=== PATIENT | male | born 1995 | race Caucasian/White ===

== ENCOUNTER 2020-10-02 15:14 | Emergency (ER) | payer SELFPAY ==
[~2020-10-02] VITALS: Ht 157.5 cm; Wt 77.2 kg
[2020-10-02 15:45] VITALS: BP 138/84
--- NOTE | 2020-10-02 16:05 | ED.ADGEN ---
Past Medical History Past Medical History: No Pertinent History Past Surgical History: Other Additional Past Surgical Histo: hernia removal, bilat testicle removed Smoking Status: Current Every Day Smoker Alcohol Use: Heavy Drug Use: None General Adult EDM: Chief Complaint: SORE THROAT HPI: HPI: Patient is a 25 year old male coming in for upper respiratory complaints. Patient states he has had congestion, cough, mild sore throat for the past few days denies any GI complaints or fevers. Is not had his Covid vaccines. Is not taking any medications prior to arrival Review of Systems: Review of Systems: All other systems within normal limits except for as noted in the HPI Current Medications: Current Medications Medications (Trade) Dose Ordered Sig/Scottie Start Time Stop Time Status Last Admin Dose Admin Guaifenesin (MUCINEX ER with DM) 1 tab 1X ONCE 10/02/20 16:30 10/02/20 16:31 DC 10/02/20 16:39 1 TAB Allergies: Allergies: Allergies Coded Allergies Type Severity Reaction Last Updated Verified No Known Drug Allergies 05/25/15 No Physical Exam: PE: Constitutional: Well developed, well nourished, no acute distress, non-toxic appearance. [] HENT: Normocephalic, atraumatic, bilateral external ears normal, nose normal. [] Eyes: PERRLA, conjunctiva normal, no discharge. [] Neck: No rigidity, supple, no stridor. [] Cardiovascular: Regular rate and rhythm, brisk cap refill [] Lungs & Thorax: Non labored symmetric respirations, no tachypnea or respiratory distress [] Abdomen: Soft, nondistended. Skin: Warm, dry, no erythema, no rash. [] Back: Unremarkable Extremities: No deformities, range of motion grossly intact, no lower extremity edema [] Neurologic: Alert and oriented X 3, no focal deficits noted. [] Psychologic: Affect normal, judgement normal, mood normal. [] Current Patient Data: Vital Signs: Vital Signs Date Time Temp Pulse Resp B/P (MAP) Pulse Ox O2 Delivery O2 Flow Rate FiO2 10/02/20 15:45 98.0 100 18 138/84 (102) 99 Room Air 98.0 EKG: EKG: [] Heart Score: C/O Chest Pain: No Risk Factors: Risk Factors: DM, Current or recent (<one month) smoker, HTN, HLP, family history of CAD, obesity. Risk Scores: Score 0 - 3: 2.5% MACE over next 6 weeks - Discharge Home Score 4 - 6: 20.3% MACE over next 6 weeks - Admit for Clinical Observation Score 7 - 10: 72.7% MACE over next 6 weeks - Early Invasive Strategies Radiology/Procedures: Radiology/Procedures: [facility] [address] [place] [address] IMAGING REPORT Signed PATIENT: GENESIS PUENTES ACCOUNT: [id number] : 1995 LOCATION: ER AGE: 25 SEX: M EXAM STATUS: PRE ER ORD. PHYSICIAN: REYNALDO MCLEOD MD REASON: cough, URI PROCEDURE: CHEST PA & LATERAL EXAMINATION: XR CHEST 2V CLINICAL HISTORY: Cough, URI EXAM DATE/TIME: 10/02/2020 4:28 PM COMPARISON: None FINDINGS: Lines, Tubes, and Devices: None. Cardiomediastinal Silhouette: Within normal limits. Lungs and Pleura: No evidence of focal airspace consolidation, pleural effusion, or pneumothorax. Bones and Soft Tissues: No acute osseous abnormality. IMPRESSION: No evidence of acute cardiopulmonary abnormality. Electronically signed by: Mario Alberto Alexandre DO (10/02/2020 4:30 PM) [id number] DICTATED and SIGNED BY: MARIO ALBERTO ALEXANDRE DO DATE: 10/02/20 [id number] [] Course & Med Decision Making: Course & Med Decision Making Pertinent Labs and Imaging studies reviewed. (See chart for details) [] Dragon Disclaimer: Dragon Disclaimer: This electronic medical record was generated, in whole or in part, using a voice recognition dictation system. Departure Departure Impression: Primary Impression: Upper respiratory infection Disposition: HOME / SELF CARE / HOMELESS Condition: STABLE Referrals: NO PCP (PCP) Patient Instructions: Upper Respiratory Infection, Adult Additional Instructions: No signs of pneumonia, you do not need antibiotics by her chest x-ray. Treat symptoms with [id number] medications consistent with your symptoms. Get your Covid vaccines. REYNALDO MCLEOD MD Oct 02, 2020 16:05
[2020-10-02] MEDS ORDERED: guaiFENesin DM 600/30MG 1 TAB TAB.ER.12H PO ONE (16:30)
--- NOTE | 2020-10-02 16:33 | RAD ---
EXAMINATION: XR CHEST 2V CLINICAL HISTORY: Cough, URI EXAM DATE/TIME: 10/02/2020 4:28 PM COMPARISON: None FINDINGS: Lines, Tubes, and Devices: None. Cardiomediastinal Silhouette: Within normal limits. Lungs and Pleura: No evidence of focal airspace consolidation, pleural effusion, or pneumothorax. Bones and Soft Tissues: No acute osseous abnormality. IMPRESSION: No evidence of acute cardiopulmonary abnormality. Electronically signed by: Mari oAlberto Mead DO (10/02/2020 4:30 PM) [id number]
== END 2020-10-02 16:59 | disposition home or self-care (01) ==
LOC: ER 15:14
DX: J06.9 Acute upper respiratory infection, unspecified (principal); F17.200 Nicotine dependence, unspecified, uncomplicated
CPT/HCPCS: 71046; 99283

== ENCOUNTER 2021-06-30 13:36 | Emergency (ER) | payer SELFPAY ==
[~2021-06-30] VITALS: Ht 177.8 cm; Wt 75.0 kg
[2021-06-30 13:46] VITALS: BP 167/94
[2021-06-30] MEDS ORDERED: DICYCLOMINE 20 MG/2 ML VIAL. IM ONE (14:00)
--- NOTE | 2021-06-30 14:13 | PHYS DOC ---
Past Medical History Past Medical History: No Pertinent History Past Surgical History: Other Additional Past Surgical Histo: hernia removal, bilat testicle removed Smoking Status: Current Every Day Smoker Alcohol Use: Heavy Drug Use: None General Adult EDM: Chief Complaint: NAUSEA/VOMITING/DIARRHEA HPI: HPI: Patient is a 26 year old male who presents with last 2 days patient has had nausea, vomiting diarrhea. He states that last night he was able to have some broth. He states that today he was able to keep down a sandwich and some flui ds. He states the meaning that is bothering him is still the diarrhea. He states on Monday he drank quite a bit of alcohol and had at least 6 very large beers if not more. He states he usually has at least 3 beers a night daily. He states every now and then he gets bouts of some vomiting and diarrhea maybe once or twice a month. He states it only last about a day usually. He states that this lasted longer this time around. He states he has not gone to work and he is here to get a work note so he can go back to work. He has not tried to take any medications for his symptoms. He states that the nausea and vomiting is now gone and its only the diarrhea he has now. Patient has a history of alcoholism, smoking. Patient denies fever, abdominal pain, dizziness, headache, shortness of breath, chest pain, back pain, numbness or tingling, urinary symptoms, weakness, vision change, skin color change. Denies any pain at this time. Review of Systems: Review of Systems: Constitutional: Denies fever or chills. [] Eyes: Denies change in visual acuity. [] HENT: Denies nasal congestion or sore throat. [] Respiratory: Denies cough or shortness of breath. [] Cardiovascular: Denies chest pain or edema. [] GI: Denies abdominal pain,+nausea, +vomiting, denies bloody stools or +diarrhea. [] : Denies dysuria. [] Musculoskeletal: Denies back pain or joint pain. [] Integument: Denies rash. [] Neurologic: Denies headache, focal weakness or sensory changes. [] Endocrine: Denies polyuria or polydipsia. [] Lymphatic: Denies swollen glands. [] Psychiatric: Denies depression or anxiety. [] Heart Score: C/O Chest Pain: No Current Medications: Current Medications Medications (Trade) Dose Ordered Sig/Scottie Start Time Stop Time Status Last Admin Dose Admin Dicyclomine HCl (Bentyl) 10 mg 1X ONCE 06/30/21 14:00 06/30/21 14:03 DC Allergies: Allergies: Allergies Coded Allergies Type Severity Reaction Last Updated Verified No Known Drug Allergies 05/25/15 No Physical Exam: PE: Constitutional: Well developed, well nourished, no acute distress, non-toxic appearance. [] HENT: Normocephalic, atraumatic, bilateral external ears normal, oropharynx moist, no oral exudates, nose normal. [] Eyes: PERRLA, EOMI, conjunctiva normal, no discharge. [] Neck: Normal range of motion, no tenderness, supple, no stridor. [] Cardiovascular:Heart rate regular rhythm, no murmur [] Lungs & Thorax: Bilateral breath sounds clear to auscultation [] Abdomen: Bowel sounds normal, soft, no tenderness, no masses, no pulsatile masses. [] Skin: Warm, dry, no erythema, no rash. [] Back: No tenderness, no CVA tenderness. [] Extremities: No tenderness, no cyanosis, no clubbing, ROM intact, no edema. [] Neurologic: Alert and oriented X 3, normal motor function, normal sensory function, no focal deficits noted. [] Psychologic: Affect normal, judgement normal, mood normal. [] Normal physical exam Current Patient Data: Vital Signs: Vital Signs Date Time Temp Pulse Resp B/P (MAP) Pulse Ox O2 Delivery O2 Flow Rate FiO2 06/30/21 13:46 98.2 83 18 167/94 (118) 99 Room Air 98.2 EKG: EKG: [] Radiology/Procedures: Radiology/Procedures: [] Course & Med Decision Making: Course & Med Decision Making Pertinent Labs and Imaging studies reviewed. (See chart for details) See HPI. Alert and oriented x4. Ambulatory steady gait. Speaks in full clear sentences. Mucous membranes are moist. Vital signs within normal limits. Abdomen is soft and nontender. No jaundice. Skin pink warm and dry. Lungs are clear to auscultation all lobes. Urinalysis does not show dehydration. His vital signs are within normal limits. Influenza and rapid Covid are negative. Patient is educated that he needs to not drink as much alcohol. Patient states his understanding. [] [place] Disclaimer: Dragon Disclaimer: This electronic medical record was generated, in whole or in part, using a voice recognition dictation system. Departure Departure Impression: Primary Impression: Diarrhea Qualified Codes: R19.7 - Diarrhea, unspecified Additional Impression: Alcohol abuse Disposition: HOME / SELF CARE / HOMELESS Condition: STABLE Referrals: NO PCP (PCP) Patient Instructions: Alcohol Problems, Alcohol and Drug Addiction, Finding Treatment Additional Instructions: Follow-up with your primary care provider. Please stop lower the amount of alcohol you are drinking if at all possible. Drink plenty of fluids to stay hydrated. You can take Imodium [id number] to help with diarrhea. MELO ESTEVES BIOLOGICAL [employer] TECHNICIAN Jun 30, 2021 14:13
[2021-06-30 14:32] LABS: BARBITURATES NEG (NEG); BENZODIAZEPINES NEG (NEG); CANNABINOIDS POS (NEG); COCAINE NEG (NEG); METHADONE NEG (NEG); OPIATES NEG (NEG); PHENCYCLIDINE NEG (NEG)
[2021-06-30 14:43] LABS: BILIRUBIN,URINE NEGATIVE (NEG); CLARITY,URINE CLEAR; COLOR,URINE STRAW
[2021-06-30 14:44] LABS: NITRITE,URINE NEGATIVE (NEG); PH,URINE 6.5 (<5.0-8.0); PROTEIN,URINE NEGATIVE (NEG-TRACE); UROBILINOGEN,URINE 0.2 mg/dL (0.2 mg/dL)
[2021-06-30 14:45] LABS: INFLUENZA A PATIENT NEGATIVE (NEGATIVE); INFLUENZA B PATIENT NEGATIVE (NEGATIVE)
[2021-06-30 14:46] LABS: BACTERIA,URINE 0 /HPF (0-FEW)
[2021-06-30 14:52] LABS: AMPHETAMINE/METHAMPHETAMINE NEG (NEG)
== END 2021-06-30 15:45 | disposition home or self-care (01) ==
LOC: ER 13:36
DX: R19.7 Diarrhea, unspecified (principal); R11.2 Nausea with vomiting, unspecified; Z20.822 Contact with and (suspected) exposure to COVID-19; F10.20 Alcohol dependence, uncomplicated; Y90.9 Presence of alcohol in blood, level not specified
CPT/HCPCS: 80307; 81001; 87428; 96372; 99283; J0500